=== PATIENT | male | born 1995 | race American Indian/Alaskan Native ===

== ENCOUNTER 2018-03-28 14:10 | Emergency (ER) | payer SELFPAY ==
[2018-03-28] MEDS ORDERED: NACL 0.9% 1000 ML 1,000 ML IV ONE ×2 (15:53→18:05)
[2018-03-28 16:31] LABS: Basophils % (Auto) 0.6 % (0.0-1.8); Eosinophils # (Auto) 0.1 K/mm3 (0.0-0.4); Eosinophils % (Auto) 2.4 % (0.0-4.3); Hematocrit 46.2 % (35.5-45.6); Lymphocytes # (Auto) 1.2 K/mm3 (1.2-5.4); Lymphocytes % (Auto) 32.1 % (13.4-35.0); Mean Corpuscular HGB Conc 33 % (32-34); Mean Corpuscular Hemoglobin 28 pg (28-32); Mean Corpuscular Volume 85 fl (84-94); Monocytes # (Auto) 0.4 K/mm3 (0.0-0.8); Monocytes % (Auto) 10.8 % (0.0-7.3); Platelet Count 241 K/mm3 (140-440); Red Blood Count 5.42 M/mm3 (3.65-5.03); Red Cell Distribution Width 14.3 % (13.2-15.2)
[2018-03-28 16:54] LABS: Alanine Aminotransferase 14 units/L (7-56); BUN/Creatinine Ratio 16; Blood Urea Nitrogen 13 mg/dL (9-20); Calcium 9.5 mg/dL (8.4-10.2); Hemolysis Index 5
--- NOTE | 2018-03-28 18:11 | Emergency Department Report ---
Blank Doc - Documentation Documentation: 22yo male with hx of HIV, states that he smoked some marijuana about 2 days back and it was laced with meth and since then he hasnt been sleeping much. pt states that his friend laced it with meth, now pt states he did take a nap outside and feels better. pt also states it hurts to pee, and he had unprotected sex recently P: bloodwork, ekg, fluids, std check
[2018-03-28 18:31] LABS: Mucus,Urine FEW /HPF
[2018-03-28 18:35] LABS: Bilirubin,Urine NEG (Negative); Blood,Urine NEG (Negative); Color,Urine Amber (Yellow); WBC,Urine < 1.0 /HPF (0.0-6.0)
[2018-03-28 18:38] LABS: Benzodiazepines Screen,Urine PRESUMPTIVE NEGATIVE; Cocaine Screen,Urine PRESUMPTIVE NEGATIVE; Methadone Screen,Urine PRESUMPTIVE NEGATIVE; Opiate Screen,Urine PRESUMPTIVE NEGATIVE
[2018-03-28 19:05] LABS: Amphetamine Screen,Urine PRESUMPTIVE POSITIVE; Cannabinoid Screen,Urine PRESUMPTIVE POSITIVE
[2018-03-28 19:25] VITALS: BP 102/76
--- NOTE | 2018-03-28 20:04 | Emergency Department Report ---
ED General Adult HPI - General Chief complaint: Weakness Stated complaint: FEELING WEAK Time Seen by Provider: 03/28/18 18:00 Source: patient Mode of arrival: Ambulatory Limitations: No Limitations - History of Present Illness Initial comments: 22yo male with hx of HIV, states that he smoked some marijuana about 2 days back and it was laced with meth and since then he hasnt been sleeping much. pt states that his friend laced it with meth, now pt states he did take a nap outside and feels better. pt also states it hurts to pee, and he had unprotected sex recently. - Related Data Home Medications Medication Instructions Recorded Confirmed Last Taken No Known Home Medications [No 10/05/13 10/05/13 Unknown Reported Home Medications] Allergies Allergy/AdvReac Type Severity Reaction Status Date / Time acetaminophen [From Tylenol] Allergy Swelling Verified 03/28/18 14:13 ED Review of Systems ROS: Stated complaint: FEELING WEAK Other details as noted in HPI ED Past Medical Hx - Past Medical History Hx Asthma: Yes - Social History Smoking Status: Current Every Day Smoker Substance Use Type: Marijuana - Medications Home Medications: Home Medications Medication Instructions Recorded Confirmed Last Taken Type No Known Home Medications [No 10/05/13 10/05/13 Unknown History Reported Home Medications] ED Physical Exam - General Limitations: No Limitations ED Course Vital Signs 03/28/18 03/28/18 14:13 19:14 Temperature 98.2 F 98.8 F Pulse Rate 114 H 89 Respiratory 20 14 Rate Blood Pressure 114/73 102/76 O2 Sat by Pulse 97 98 Oximetry ED Medical Decision Making - Lab Data Result diagrams: 03/28/18 16:23 03/28/18 16:23 Critical care attestation.: If time is entered above; I have spent that time in minutes in the direct care of this critically ill patient, excluding procedure time. ED Disposition Clinical Impression: Dysuria Disposition: DC-07 LEFT AGAINST MED ADVICE Is pt being admited?: No Does the pt Need Aspirin: No Condition: Stable Referrals: PRIMARY CARE, [Primary Care Provider] - 3-5 Days Forms: AMA Form
== END 2018-03-28 20:05 | disposition left against medical advice (07) ==
LOC: ED 14:10
DX: R30.0 Dysuria (principal); F17.200 Nicotine dependence, unspecified, uncomplicated; J45.909 Unspecified asthma, uncomplicated; Z88.8 Allergy status to other drugs, medicaments and biological substances
CPT/HCPCS: 36415; 80053; 80307; 81001; 85025; 93005; 93010; 96360; 99283; J7030

== ENCOUNTER 2019-09-25 16:51 | Emergency (ER) | payer SELFPAY ==
--- NOTE | 2019-09-25 17:40 | Emergency Department Report ---
<VENECIA JUARES - Last Filed: 09/25/19 19:56> ED Psych HPI - General Chief Complaint: Psych Stated Complaint: MH EVAL/SI Time Seen by Provider: 09/25/19 17:30 - Related Data Home Medications Medication Instructions Recorded Confirmed Last Taken Darunavir/Cobicistat (Nf) 1 each PO DAILY 09/25/19 09/25/19 1 Day Ago [Prezcobix 800 mg-150 mg (Nf)] ~09/24/19 Emtricitabine/Tenofov Alafenam 1 each PO DAILY 09/25/19 09/25/19 1 Day Ago [Descovy 200-25 mg (Nf)] ~09/24/19 Allergies Allergy/AdvReac Type Severity Reaction Status Date / Time acetaminophen [From Tylenol] Allergy Swelling Verified 03/28/18 14:13 ED Past Medical Hx - Medications Home Medications: Home Medications Medication Instructions Recorded Confirmed Last Taken Type Darunavir/Cobicistat (Nf) 1 each PO DAILY 09/25/19 09/25/19 1 Day Ago History [Prezcobix 800 mg-150 mg (Nf)] ~09/24/19 Emtricitabine/Tenofov Alafenam 1 each PO DAILY 09/25/19 09/25/19 1 Day Ago History [Descovy 200-25 mg (Nf)] ~09/24/19 ED Course - Reevaluation(s) Reevaluation #2: 09/25/19 19:56 Patient has been medically cleared for psychiatric evaluation and placement at this time. ED Medical Decision Making - Lab Data Result diagrams: 09/25/19 17:45 09/25/19 17:45 Lab Results 09/25/19 09/25/19 09/25/19 Range/Units 17:45 17:45 17:45 WBC (4.5-11.0) K/mm3 RBC (3.65-5.03) M/mm3 Hgb (11.8-15.2) gm/dl Hct (35.5-45.6) % MCV (84-94) fl MCH (28-32) pg MCHC (32-34) % RDW (13.2-15.2) % Plt Count (140-440) K/mm3 Lymph % (Auto) (13.4-35.0) % [place] % (Auto) (0.0-7.3) % Eos % (Auto) (0.0-4.3) % Baso % (Auto) (0.0-1.8) % Lymph # (1.2-5.4) K/mm3 [place] # (0.0-0.8) K/mm3 Eos # (0.0-0.4) K/mm3 Baso # (0.0-0.1) K/mm3 Seg Neutrophils % (40.0-70.0) % Seg Neutrophils # (1.8-7.7) K/mm3 Sodium 135 L (137-145) mmol/L Potassium 3.7 (3.6-5.0) mmol/L Chloride 97.9 L (98-107) mmol/L Carbon Dioxide 23 (22-30) mmol/L Anion Gap 18 mmol/L BUN 15 (9-20) mg/dL Creatinine 0.9 (0.8-1.5) mg/dL Estimated GFR > 60 ml/min BUN/Creatinine Ratio 17 % Glucose 108 H (75-100) mg/dL Calcium 9.6 (8.4-10.2) mg/dL Urine Color (Yellow) Urine Turbidity (Clear) Urine pH (5.0-7.0) Ur Specific [place] (1.003-1.030) Urine Protein (Negative) mg/dL Urine Glucose (UA) (Negative) mg/dL Urine Ketones (Negative) mg/dL Urine Blood (Negative) Urine Nitrite (Negative) Urine Bilirubin (Negative) Urine Urobilinogen (<2.0) mg/dL Ur Leukocyte Esterase (Negative) Urine WBC (Auto) (0.0-6.0) /HPF Urine RBC (Auto) (0.0-6.0) /HPF U Epithel Cells (Auto) (0-13.0) /HPF Urine Mucus /HPF Salicylates < 0.3 L (2.8-20.0) mg/dL Urine Opiates Screen Urine Methadone Screen Acetaminophen < 5.0 L (10.0-30.0) ug/mL Ur Barbiturates Screen Ur Phencyclidine Scrn Ur Amphetamines Screen U Benzodiazepines Scrn Urine Cocaine Screen U Marijuana (THC) Screen Drugs of Abuse Note Plasma/Serum Alcohol (0-0.07) % 09/25/19 09/25/19 09/25/19 Range/Units 17:45 17:45 Unknown WBC 3.8 L (4.5-11.0) K/mm3 RBC 5.29 H (3.65-5.03) M/mm3 Hgb 14.1 (11.8-15.2) gm/dl Hct 42.8 (35.5-45.6) % MCV 81 L (84-94) fl MCH 27 L (28-32) pg MCHC 33 (32-34) % RDW 15.1 (13.2-15.2) % Plt Count 313 (140-440) K/mm3 Lymph % (Auto) 48.1 H (13.4-35.0) % [place] % (Auto) 10.1 H (0.0-7.3) % Eos % (Auto) 0.4 (0.0-4.3) % Baso % (Auto) 0.7 (0.0-1.8) % Lymph # 1.8 (1.2-5.4) K/mm3 [place] # 0.4 (0.0-0.8) K/mm3 Eos # 0.0 (0.0-0.4) K/mm3 Baso # 0.0 (0.0-0.1) K/mm3 Seg Neutrophils % 40.7 (40.0-70.0) % Seg Neutrophils # 1.5 L (1.8-7.7) K/mm3 Sodium (137-145) mmol/L Potassium (3.6-5.0) mmol/L Chloride (98-107) mmol/L Carbon Dioxide (22-30) mmol/L Anion Gap mmol/L BUN (9-20) mg/dL Creatinine (0.8-1.5) mg/dL Estimated GFR ml/min BUN/Creatinine Ratio % Glucose (75-100) mg/dL Calcium (8.4-10.2) mg/dL Urine Color [place] (Yellow) Urine Turbidity Clear (Clear) Urine pH 5.0 (5.0-7.0) Ur Specific [place] 1.032 H (1.003-1.030) Urine Protein 30 mg/dl (Negative) mg/dL Urine Glucose (UA) Neg (Negative) mg/dL Urine Ketones Tr (Negative) mg/dL Urine Blood Neg (Negative) Urine Nitrite Neg (Negative) Urine Bilirubin Neg (Negative) Urine Urobilinogen 4.0 (<2.0) mg/dL Ur Leukocyte Esterase Neg (Negative) Urine WBC (Auto) 2.0 (0.0-6.0) /HPF Urine RBC (Auto) 3.0 (0.0-6.0) /HPF U Epithel Cells (Auto) < 1.0 (0-13.0) /HPF Urine Mucus 3+ /HPF Salicylates (2.8-20.0) mg/dL Urine Opiates Screen Urine Methadone Screen Acetaminophen (10.0-30.0) ug/mL Ur Barbiturates Screen Ur Phencyclidine Scrn Ur Amphetamines Screen U Benzodiazepines Scrn Urine Cocaine Screen U Marijuana (THC) Screen Drugs of Abuse Note Plasma/Serum Alcohol < 0.01 (0-0.07) % 09/25/19 Range/Units Unknown WBC (4.5-11.0) K/mm3 RBC (3.65-5.03) M/mm3 Hgb (11.8-15.2) gm/dl Hct (35.5-45.6) % MCV (84-94) fl MCH (28-32) pg MCHC (32-34) % RDW (13.2-15.2) % Plt Count (140-440) K/mm3 Lymph % (Auto) (13.4-35.0) % [place] % (Auto) (0.0-7.3) % Eos % (Auto) (0.0-4.3) % Baso % (Auto) (0.0-1.8) % Lymph # (1.2-5.4) K/mm3 [place] # (0.0-0.8) K/mm3 Eos # (0.0-0.4) K/mm3 Baso # (0.0-0.1) K/mm3 Seg Neutrophils % (40.0-70.0) % Seg Neutrophils # (1.8-7.7) K/mm3 Sodium (137-145) mmol/L Potassium (3.6-5.0) mmol/L Chloride (98-107) mmol/L Carbon Dioxide (22-30) mmol/L Anion Gap mmol/L BUN (9-20) mg/dL Creatinine (0.8-1.5) mg/dL Estimated GFR ml/min BUN/Creatinine Ratio % Glucose (75-100) mg/dL Calcium (8.4-10.2) mg/dL Urine Color (Yellow) Urine Turbidity (Clear) Urine pH (5.0-7.0) Ur Specific [place] (1.003-1.030) Urine Protein (Negative) mg/dL Urine Glucose (UA) (Negative) mg/dL Urine Ketones (Negative) mg/dL Urine Blood (Negative) Urine Nitrite (Negative) Urine Bilirubin (Negative) Urine Urobilinogen (<2.0) mg/dL Ur Leukocyte Esterase (Negative) Urine WBC (Auto) (0.0-6.0) /HPF Urine RBC (Auto) (0.0-6.0) /HPF U Epithel Cells (Auto) (0-13.0) /HPF Urine Mucus /HPF Salicylates (2.8-20.0) mg/dL Urine Opiates Screen Presumptive negative Urine Methadone Screen Presumptive negative Acetaminophen (10.0-30.0) ug/mL Ur Barbiturates Screen Presumptive negative Ur Phencyclidine Scrn Presumptive negative Ur Amphetamines Screen Presumptive positive U Benzodiazepines Scrn Presumptive negative Urine Cocaine Screen Presumptive negative U Marijuana (THC) Screen Presumptive positive Drugs of Abuse Note Disclamer Plasma/Serum Alcohol (0-0.07) % ED Disposition Clinical Impression: Suicidal ideation Depression Qualifiers: Depression Type: unspecified Qualified Code(s): F32.9 - Major depressive disorder, single episode, unspecified Disposition: DC/TX-65 PSY HOSP/PSY UNIT Condition: Stable <RAS WILLIS - Last Filed: 09/26/19 07:40> ED Psych HPI - General Source: patient, EMS Mode of arrival: Ambulatory - History of Present Illness Initial Comments: This is a 24-year-old male nontoxic, well nourished in appearance, no acute signs of distress presents to the ED with c/o of depression with suicidal ideation. Patient stated he has taken methamphetamine earlier today. Patient stated he wants to take all his HIV medications and commit suicide that way or jump off a bridge. Patient denies any auditory or visual hallucinations. Patient denies any homicidal ideation. Patient denies any fever, chills, nausea, vomiting, chest pain, shortness of breath, headache or stiff neck. Patient otherwise denies any symptoms. Denies any alcohol consumption. Patient stated allergies to acetaminophen. MD Complaint: suicidal ideation, feels depressed Associated Psychiatric Symptoms: depression, suicidal ideation History of same: Yes Quality: constant Improves With: none Worsens With: none Context: recent drug abuse Associated Symptoms: denies: confusion, headache, shortness of breath, nausea, vomiting, syncope, insomnia Treatments Prior to Arrival: none If Self Harm: admits thoughts of, has plan ED Review of Systems ROS: Stated complaint: MH EVAL/SI Other details as noted in HPI Constitutional: denies: chills, fever Eyes: denies: eye pain, eye discharge, vision change ENT: denies: ear pain, throat pain Respiratory: denies: cough, shortness of breath, wheezing Cardiovascular: denies: chest pain, palpitations Endocrine: no symptoms reported Gastrointestinal: denies: abdominal pain, nausea, diarrhea Genitourinary: denies: urgency, dysuria Musculoskeletal: denies: back pain, joint swelling, arthralgia Skin: denies: rash, lesions Neurological: denies: headache, weakness, paresthesias Psychiatric: depression, suicidal thoughts. denies: anxiety, auditory h allucinations, visual hallucinations, homicidal thoughts Hematological/Lymphatic: denies: easy bleeding, easy bruising ED Past Medical Hx - Past Medical History Hx Asthma: Yes Hx HIV: Yes - Surgical History Past Surgical History?: No - Social History Smoking Status: Current Every Day Smoker Substance Use Type: Alcohol, Cocaine, Heroin, Marijuana, Methamphetamines ED Physical Exam - General Limitations: No Limitations General appearance: alert, in no apparent distress - Head Head exam: Present: atraumatic, normocephalic - Eye Eye exam: Present: normal appearance, PERRL, EOMI - Neck Neck exam: Present: normal inspection, full ROM. Absent: tenderness, meningismus, lymphadenopathy - Respiratory Respiratory exam: Present: normal lung sounds bilaterally. Absent: respiratory distress, wheezes, rhonchi, stridor, chest wall tenderness, accessory muscle use, decreased breath sounds, prolonged expiratory - Cardiovascular Cardiovascular Exam: Present: regular rate, normal rhythm, normal heart sounds. Absent: bradycardia, tachycardia, irregular rhythm, systolic murmur, diastolic murmur, rubs, gallop - GI/Abdominal GI/Abdominal exam: Present: soft, normal bowel sounds. Absent: distended, tenderness, guarding, rebound, rigid, diminished bowel sounds - Rectal Rectal exam: Present: deferred - Extremities Exam Extremities exam: Present: normal inspection, full ROM - Back Exam Back exam: Present: normal inspection, full ROM. Absent: tenderness, CVA tenderness (R), CVA tenderness (L), muscle spasm, paraspinal tenderness, vertebr al tenderness, rash noted - Neurological Exam Neurological exam: Present: alert, oriented X3, normal gait - Psychiatric Psychiatric exam: Present: normal affect, normal mood - Skin Skin exam: Present: warm, dry, intact, normal color. Absent: rash ED Course Vital Signs 09/25/19 09/25/19 09/26/19 17:43 20:30 01:00 Temperature 99.0 F 98.1 F 98.3 F Pulse Rate 117 H 98 H 84 Respiratory 18 18 18 Rate Blood Pressure 113/69 105/71 106/62 [Left] O2 Sat by Pulse 98 97 98 Oximetry - Reevaluation(s) Reevaluation #1: 09/25/19 17:39 Patient is speaking in full sentences with no signs of distress noted. ED Medical Decision Making - Lab Data Result diagrams: 09/25/19 17:45 09/25/19 17:45 - Medical Decision Making This is a 24-year-old male that presents with SI. Patient is currently stable and was examined by me. Patient has been placed on 1013 and patient to be examined and evaluated by psychiatrist. Patient will remain in the ER until cleared by psychiatry. At time of admission, the patient does not seem toxic or ill in appearance. No acute signs of distress noted. Patient agrees to admission treatment plan of care. No further questions noted by the patient. Critical care attestation.: If time is entered above; I have spent that time in minutes in the direct care of this critically ill patient, excluding procedure time. ED Disposition Is pt being admited?: No
[2019-09-25 18:46] LABS: BUN/Creatinine Ratio 17; Blood Urea Nitrogen 15 mg/dL (9-20); Calcium 9.6 mg/dL (8.4-10.2); Hemolysis Index 26
[2019-09-25 19:04] LABS: Basophils % (Auto) 0.7 % (0.0-1.8); Eosinophils % (Auto) 0.4 % (0.0-4.3); Hematocrit 42.8 % (35.5-45.6); Hemoglobin 14.1 gm/dl (11.8-15.2); Lymphocytes # (Auto) 1.8 K/mm3 (1.2-5.4); Lymphocytes % (Auto) 48.1 % (13.4-35.0); Mean Corpuscular HGB Conc 33 % (32-34); Mean Corpuscular Volume 81 fl (84-94); Monocytes # (Auto) 0.4 K/mm3 (0.0-0.8); Monocytes % (Auto) 10.1 % (0.0-7.3); Platelet Count 313 K/mm3 (140-440); Red Blood Count 5.29 M/mm3 (3.65-5.03); Red Cell Distribution Width 15.1 % (13.2-15.2)
[2019-09-25 19:28] LABS: Bilirubin,Urine NEG (Negative); Blood,Urine NEG (Negative); Color,Urine Amber (Yellow); Mucus,Urine 3+ /HPF
[2019-09-25 19:32] LABS: Benzodiazepines Screen,Urine PRESUMPTIVE NEGATIVE; Cocaine Screen,Urine PRESUMPTIVE NEGATIVE; Methadone Screen,Urine PRESUMPTIVE NEGATIVE; Opiate Screen,Urine PRESUMPTIVE NEGATIVE
[2019-09-25 19:46] LABS: Amphetamine Screen,Urine PRESUMPTIVE POSITIVE; Cannabinoid Screen,Urine PRESUMPTIVE POSITIVE
--- NOTE | 2019-09-26 08:59 | Consultation ---
History of Present Illness - Reason for Consult Consult date: 09/26/19 Reason for consult: Mental Health Evaluation Requesting physician: RAS WILLIS - Chief Complaint Chief complaint: "I didn't say much" - History of Present Psychiatric Illness 24 y.o. AA male who presented to the ER for SI's and substance abuse. Today the patient was calm during the assessment. He stated that he was smoking a "blunt" and believe it was laced with "meth." He stated that he called EMS because he felt "some type of way." He would not confirm or deny if he gestured self harm during triage. He acknowledged thoughts of suicide when he was an adolescent. He stated, "I think I went to a hospital." He denies SI/HI's and AVH's. He denies erratic sleep and a poor appetite. He denies alcohol consumption (etoh). Medications and Allergies Allergies Allergy/AdvReac Type Severity Reaction Status Date / Time acetaminophen [From Tylenol] Allergy Swelling Verified 03/28/18 14:13 Home Medications Medication Instructions Recorded Confirmed Last Taken Type Darunavir/Cobicistat (Nf) 1 each PO DAILY 09/25/19 09/25/19 1 Day Ago History [Prezcobix 800 mg-150 mg (Nf)] ~09/24/19 Emtricitabine/Tenofov Alafenam 1 each PO DAILY 09/25/19 09/25/19 1 Day Ago History [Descovy 200-25 mg (Nf)] ~09/24/19 Past psychiatric history - Past Medical History Past Medical History: HIV/AIDS Past Surgical History: No surgical history - past Psychiatric treatment and history psychiatric treatment history: Inpatient psy services in the past. Denies a fam psy hx. - Social History Social history: lives with family Mental Status Exam - Vital signs Last Vital Signs Temp 97.7 F 09/26/19 07:00 Pulse 109 H 09/26/19 07:00 Resp 18 09/26/19 07:00 BP 118/64 09/26/19 07:00 Pulse Ox 98 09/26/19 07:00 - Exam Narrative exam: MSE: Appearance: calm, cooperative Behavior: regular eye contact Speech: regular rate and tone Mood: "okay" Affect: congruent to mood Thought Process: circumstantial Thought Content: denies SI/HI's and AVH's Motor Activity: lying in bed Cognition: A/O x3 Insight: variable Judgment: poor Results Result Diagrams: 09/25/19 17:45 09/25/19 17:45 Abnormal lab results 09/25/19 09/25/19 09/25/19 Range/Units 17:45 17:45 17:45 WBC (4.5-11.0) K/mm3 RBC (3.65-5.03) M/mm3 MCV (84-94) fl MCH (28-32) pg Lymph % (Auto) (13.4-35.0) % [place] % (Auto) (0.0-7.3) % Seg Neutrophils # (1.8-7.7) K/mm3 Sodium 135 L (137-145) mmol/L Chloride 97.9 L (98-107) mmol/L Glucose 108 H (75-100) mg/dL Ur Specific [place] (1.003-1.030) Salicylates < 0.3 L (2.8-20.0) mg/dL Acetaminophen < 5.0 L (10.0-30.0) ug/mL 09/25/19 09/25/19 Range/Units 17:45 Unknown WBC 3.8 L (4.5-11.0) K/mm3 RBC 5.29 H (3.65-5.03) M/mm3 MCV 81 L (84-94) fl MCH 27 L (28-32) pg Lymph % (Auto) 48.1 H (13.4-35.0) % [place] % (Auto) 10.1 H (0.0-7.3) % Seg Neutrophils # 1.5 L (1.8-7.7) K/mm3 Sodium (137-145) mmol/L Chloride (98-107) mmol/L Glucose (75-100) mg/dL Ur Specific [place] 1.032 H (1.003-1.030) Salicylates (2.8-20.0) mg/dL Acetaminophen (10.0-30.0) ug/mL All other labs normal. Assessment and Plan Assessment and plan: Impression: Unspecified Mood DO. Substance Use DO. Cannabis Use DO. Today the patient was calm and cooperative during the assessment. DDx: Substance Induced Mood DO Recommendation/Plan: Reevaluate the patient's 1013 in 24 hours. Dispo: If the patient's 1013 is rescinded in 24 hours, he can follow up with [facility] for outpatient psy/rehab services. Staffed with Dr Mercedes Neely.
[2019-09-26] MEDS ORDERED: DARUNAVIR PO SCH (19:30)
[2019-09-26] MEDS ORDERED: EMTRICITABINE PO SCH (19:30)
[2019-09-26] MEDS ORDERED: TENOFOV ALAFENAM PO SCH (19:30)
[2019-09-26] MEDS ORDERED: COBICISTAT PO SCH (19:30)
[2019-09-26] MEDS: EMTRICITABINE/TENOFOVIR ALAFENAMIDE (NF) TAB PO SCH (22:24)
[2019-09-26] MEDS: COBICISTAT PO SCH (22:24)
[2019-09-26] MEDS: DARUNAVIR PO SCH (22:24)
--- NOTE | 2019-09-27 08:39 | Progress Note ---
Subjective - Reason for Consult Consult date: 09/27/19 Reason for consult: Psychiatry Follow-up - Chief Complaint Chief complaint: "I made a terrible mistake" 24 y.o. AA male who presented to the ER for SI's and substance abuse. Today the patient was calm and cooperative during the assessment. He admitted to using "meth" intentionally prior to his arrival to the ER. He stated, "I should have been honest yesterday." He stated that he plan to seek rehab services when discharged. He denies SI/HI's and AVH's. Mental Status Exam - Vital signs Last Vital Signs Temp 97.5 F L 09/27/19 07:00 Pulse 78 09/27/19 07:00 Resp 16 09/27/19 07:00 BP 111/67 09/27/19 07:00 Pulse Ox 98 09/27/19 07:00 - Exam Narrative exam: MSE: Appearance: calm, cooperative Behavior: regular eye contact Speech: regular rate and tone Mood: "okay" Affect: congruent to mood Thought Process: linear Thought Content: denies SI/HI's and AVH's Motor Activity: lying in bed Cognition: A/O x3 Insight: appropriate Judgment: fair Assessment and Plan Impression: Unspecified Mood DO. Substance Use DO. Cannabis Use DO. Today the patient was calm and cooperative during the assessment. The patient is no threat to self. DDx: Substance Induced Mood DO Recommendation/Plan: Rescind 1013. Discussed generalized coping skills with the patient, he verbalized understanding. Discussed the importance to abstain from recreational drug use with the, he verbalized understanding. Dispo: The patient can follow up with [facility] for outpatient psy services. Will staff with Dr Mercedes Neely.
[2019-09-27] MEDS: COBICISTAT PO SCH (10:02)
[2019-09-27] MEDS: DARUNAVIR PO SCH (10:02)
[2019-09-27] MEDS: EMTRICITABINE/TENOFOVIR ALAFENAMIDE (NF) TAB PO SCH (10:02)
[2019-09-27 13:11] VITALS: BP 100/69
== END 2019-09-27 12:58 | disposition home or self-care (01) ==
LOC: ED 16:51
DX: F12.10 Cannabis abuse, uncomplicated (principal); J45.909 Unspecified asthma, uncomplicated; F17.200 Nicotine dependence, unspecified, uncomplicated; F15.10 Other stimulant abuse, uncomplicated; Z21 Asymptomatic human immunodeficiency virus [HIV] infection status; Z79.899 Other long term (current) drug therapy; Z88.8 Allergy status to other drugs, medicaments and biological substances
CPT/HCPCS: 36415; 80048; 80307; 80320; 81001; 85025; G0480

== ENCOUNTER → 2019-10-24 00:23 | Emergency (ER) | payer SELFPAY | END | disposition left against medical advice (07) | LOC: ED 00:23 | DX: R42 Dizziness and giddiness (principal); Z53.21 Procedure and treatment not carried out due to patient leaving prior to being seen by health care provider ==

== ENCOUNTER 2020-03-23 18:57 | Emergency (ER) | payer SELFPAY ==
--- NOTE | 2020-03-23 19:35 | Emergency Department Report ---
ED Psych HPI - General Chief Complaint: Psych Stated Complaint: SUCICIDAL Time Seen by Provider: 03/23/20 19:22 Source: patient, EMS Mode of arrival: Ambulatory - History of Present Illness Initial Comments: 24-year-old male with history of HIV, mood disorder, presents to ED with suicidal ideations. EMS states mother found patient attempting to make a noose out of his phone broke handler cord. Mother was concerned about his suicidal intent and called 911. She was also concerned because patient has knives under his bed and has cut himself in the past. Patient reports he has been depressed for the last 2 weeks and began having suicidal thoughts over the last couple of days be cause he has "some things going on at home." Patient would not elaborate on this. However, patient states he no longer feels suicidal and wants to go home. Patient denies making a noose at home. He denies having a plan for suicide. States he is not currently on any psychiatric medications. MD Complaint: suicidal ideation, feels depressed -: week(s) (2) Associated Psychiatric Symptoms: depression, suicidal ideation Quality: constant Improves With: none Worsens With: none Associated Symptoms: denies other symptoms Treatments Prior to Arrival: none If Self Harm: admits thoughts of, has acted on plan (EMS reports pt made a noose) - Related Data Home Medications Medication Instructions Recorded Confirmed Last Taken Darunavir/Cobicistat (Nf) 1 each PO DAILY 09/25/19 03/24/20 03/10/20 09:00 [Prezcobix 800 mg-150 mg (Nf)] Emtricitabine/Tenofov Alafenam 1 each PO DAILY 09/25/19 03/24/20 03/10/20 09:00 [Descovy 200-25 mg (Nf)] Allergies Allergy/AdvReac Type Severity Reaction Status Date / Time acetaminophen [From Tylenol] Allergy Swelling Verified 03/28/18 14:13 ED Review of Systems ROS: Stated complaint: SUCICIDAL Other details as noted in HPI Comment: All other systems reviewed and negative Psychiatric: depression, suicidal thoughts ED Past Medical Hx - Past Medical History Hx Asthma: Yes Hx HIV: Yes - Social History Smoking Status: Unknown if ever smoked - Medications Home Medications: Home Medications Medication Instructions Recorded Confirmed Last Taken Type Darunavir/Cobicistat (Nf) 1 each PO DAILY 1103/24/20 03/10/20 09:00 History [Prezcobix 800 mg-150 mg (Nf)] Emtricitabine/Tenofov Alafenam 1 each PO DAILY 09/25/19 03/24/20 03/10/20 09:00 History [Descovy 200-25 mg (Nf)] ED Physical Exam - General Limitations: No Limitations General appearance: alert, in no apparent distress - Head Head exam: Present: atraumatic, normocephalic - Eye Eye exam: Present: normal appearance, EOMI - ENT ENT exam: Present: mucous membranes moist - Neck Neck exam: Present: normal inspection - Respiratory Respiratory exam: Present: normal lung sounds bilaterally. Absent: respiratory distress - Cardiovascular Cardiovascular Exam: Present: normal rhythm, tachycardia - GI/Abdominal GI/Abdominal exam: Absent: distended - Extremities Exam Extremities exam: Present: normal inspection - Neurological Exam Neurological exam: Present: alert, oriented X3 - Psychiatric Psychiatric exam: Present: depressed, suicidal ideation - Skin Skin exam: Present: warm, dry, intact, normal color ED Course Vital Signs 03/23/20 03/23/20 03/23/20 19:19 20:00 20:51 Temperature 98.2 F 99.1 F Pulse Rate 115 H 108 H Respiratory 18 18 18 Rate Blood Pressure 133/90 Blood Pressure 116/83 [Right] O2 Sat by Pulse 100 97 Oximetry 03/24/20 03/24/20 03/24/20 02:04 08:51 16:10 Temperature 98.1 F 98.1 F 97.3 F L Pulse Rate 78 96 H 97 H Respiratory 16 19 19 Rate Blood Pressure Blood Pressure 104/70 100/65 [Right] O2 Sat by Pulse 97 100 Oximetry 03/24/20 03/24/20 03/25/20 20:04 20:21 01:42 Temperature 97.9 F 98.3 F Pulse Rate 78 80 Respiratory 16 16 16 Rate Blood Pressure Blood Pressure 97/63 94/54 [Right] O2 Sat by Pulse 97 97 98 Oximetry ED Medical Decision Making - Lab Data Result diagrams: 03/23/20 19:40 03/23/20 19:40 - Medical Decision Making 24 yo M w/ suicidal ideations. Family saw pt attempting to make a noose. Pt admits to having suicidal thoughts. Pt placed on a 1013. Labs unremarkable. Drug screen positive for amphetamines. Pt medically clear for mental health evaluation. - Differential Diagnosis SI Critical care attestation.: If time is entered above; I have spent that time in minutes in the direct care of this critically ill patient, excluding procedure time. ED Disposition Clinical Impression: Suicidal ideation Disposition: DC/TX-65 PSY HOSP/PSY UNIT Is pt being admited?: No Condition: Stable Referrals: PRIMARY CARE, [Primary Care Provider] - 3-5 Days
[2020-03-23 19:59] LABS: Basophils % (Auto) 0.4 % (0.0-1.8); Eosinophils # (Auto) 0.1 K/mm3 (0.0-0.4); Eosinophils % (Auto) 1.6 % (0.0-4.3); Hematocrit 42.3 % (35.5-45.6); Hemoglobin 13.5 gm/dl (11.8-15.2); Lymphocytes # (Auto) 1.7 K/mm3 (1.2-5.4); Lymphocytes % (Auto) 37.2 % (13.4-35.0); Mean Corpuscular HGB Conc 32 % (32-34); Mean Corpuscular Volume 86 fl (84-94); Monocytes # (Auto) 0.5 K/mm3 (0.0-0.8); Monocytes % (Auto) 10.8 % (0.0-7.3); Platelet Count 230 K/mm3 (140-440); Red Blood Count 4.92 M/mm3 (3.65-5.03); Red Cell Distribution Width 14.4 % (13.2-15.2)
[2020-03-23 20:19] LABS: BUN/Creatinine Ratio 9; Blood Urea Nitrogen 7 mg/dL (9-20); Calcium 9.3 mg/dL (8.4-10.2); Hemolysis Index 12
[2020-03-24] MEDS ORDERED: ZIPRASIDONE MESYLATE 20 MG VIAL IM ONE ×2 (11:46→11:48)
[2020-03-24 12:08] LABS: Bilirubin,Urine NEG (Negative); Blood,Urine NEG (Negative); Color,Urine Yellow (Yellow); Mucus,Urine 3+ /HPF; Protein,Urine <15 mg/dL mg/dL (Negative); Urobilinogen,Urine < 2.0 mg/dL (<2.0)
[2020-03-24 12:26] LABS: Benzodiazepines Screen,Urine PRESUMPTIVE NEGATIVE; Cannabinoid Screen,Urine PRESUMPTIVE NEGATIVE; Cocaine Screen,Urine PRESUMPTIVE NEGATIVE; Methadone Screen,Urine PRESUMPTIVE NEGATIVE; Opiate Screen,Urine PRESUMPTIVE NEGATIVE
[2020-03-24 12:52] LABS: Amphetamine Screen,Urine PRESUMPTIVE POSITIVE
[2020-03-25 01:43] VITALS: BP 94/54
== END 2020-03-25 03:33 ==
LOC: ED 18:57
DX: R45.851 Suicidal ideations (principal); J45.909 Unspecified asthma, uncomplicated; Z79.899 Other long term (current) drug therapy; Z88.6 Allergy status to analgesic agent
CPT/HCPCS: 36415; 80048; 80307; 81001; 85025; 87086; 96372; 99285; J3486; 80320; 99284; G0480